=== PATIENT | male | born 1955 | race Caucasian/White ===

== ENCOUNTER 2020-06-21 07:38 | Outpatient (RCR) | payer MEDICARE, SELFPAY ==
[2020-06-21] MEDS: COVID-19 VACC, MRNA(PFIZER)/PF 30 MCG/0.3 ML SYRINGE IM (14:29)
[2020-07-12] MEDS: COVID-19 VACC, MRNA(PFIZER)/PF 30 MCG/0.3 ML SYRINGE IM (14:23)
== END 2020-09-20 23:59 ==
LOC: IMMUN 07:38
PROVIDERS: PCP Family Medicine; Visit Provider Family Medicine
DX: Z23 Encounter for immunization (principal)
CPT/HCPCS: 0001A; 0002A; 91300